=== PATIENT | female | born 1930 | race Caucasian/White ===

== ENCOUNTER 2017-04-09 18:16 | Inpatient (IN) | payer OTHER, MEDICAID ==
[~2017-04-09] VITALS: Ht 160 cm; Wt 54.9 kg
[2017-04-09 18:16] VITALS: BP_SYST 116
[2017-04-09] MEDS ORDERED: NACL 0.9% 250 ML IV ONE (18:28)
[2017-04-09] MEDS ORDERED: NALOXONE HCL 0.4 MG/ML AMP (NARCAN) IVP ONE (18:30)
[2017-04-09 19:17] LABS: HEMATOCRIT 42.3 % (36-48); HEMOGLOBIN 13.6 g/dL (12.0-16.0); MEAN CORPUSCULAR HEMOGLOBIN 28 pg (27-31); MEAN CORPUSCULAR HGB CONC 32 % (32-36); MEAN CORPUSCULAR VOLUME 88 fL (79.0-98.0); PLATELET COUNT (AUTO) 272 K/uL (130-430); RED BLOOD CELL COUNT(AUTO) 4.83 MIL/uL (4.2-6.2); RED CELL DISTRIBUTION WIDTH 14.1 % (9.0-15.0); WHITE BLOOD COUNT (AUTO) 21.6 K/uL (4.8-10.8)
[2017-04-09 19:30] LABS: ANION GAP 22 (5-15); CALCIUM 10.4 mg/dL (8.4-11.0); CHLORIDE 106 mmol/L (98-107); CREATININE 4.77 mg/dL (0.55-1.30); GLUCOSE 201 mg/dL (70-99); INR 1.2 (0.8-1.2); POTASSIUM 4.1 mmol/L (3.5-5.1); PROTHROMBIN TIME 12.7 SECS (9.5-12.5); SODIUM SERUM 141 mmol/L (136-145); UREA NITROGEN, BLOOD 78 mg/dL (8-21)
[2017-04-09 19:34] LABS: ALANINE AMINOTRANSFERASE 41 U/L (12-78); ALBUMIN 2.6 g/dL (3.4-4.8); ASPARTATE AMINOTRANSFERASE 93 U/L (10-37); TOTAL BILIRUBIN 0.7 mg/dL (0.0-1.0)
[2017-04-09 19:35] LABS: ALCOHOL, BLOOD < 3 mg/dL (<10)
[2017-04-09 19:37] LABS: BAND % (MANUAL) 2 % (0-6); BASOPHILS % (MANUAL) 0 % (0-2); EOSINOPHILS % (MANUAL) 0 % (0-7); LYMPHOCYTES % (MANUAL) 3 % (20-46); MONOCYTES % (MANUAL) 7 % (0-11)
[2017-04-09] MEDS ORDERED: NACL 0.9% 1,000 ML IV ONE ×4 (20:00→23:00)
[2017-04-09] MEDS ORDERED: VANCOMYCIN HCL 1,000 MG in NS 250 ML IV ONE (20:00)
[2017-04-09] MEDS ORDERED: VANCOMYCIN HCL 1000 MG/VIAL IV ONE (20:03)
[2017-04-09] MEDS ORDERED: PIPERACILLIN/TAZO 3.375 GM in NS 50 ML IV ONE (20:45)
[2017-04-09] MEDS ORDERED: PIPERACILLIN/TAZOBACTAM 3.375 GM/VIAL (ZOSYN) IV ONE (20:58)
[2017-04-09 21:57] LABS: BARBITURATE, URINE NEGATIVE (NEG <=200); BENZODIAZEPINE, URINE NEGATIVE (NEG <=150); CANNABINOID, URINE NEGATIVE (NEG <=50); COCAINE, URINE NEGATIVE (NEG <=150); METHAMPHETAMINES SCREEN,URINE NEGATIVE (NEG <=500); OPIATE, URINE NEGATIVE (NEG <=100); PHENCYCLIDINE SCREEN,URINE NEGATIVE (NEG <=25); UR TRICYCLIC ANTIDEPRESSANTS NEGATIVE (NEG <=300); URINE AMPHETAMINE NEGATIVE (NEG <=500); URINE METHADONE NEGATIVE (NEG <=200); URINE OXYCODONE SCREEN NEGATIVE (NEG <=100); URINE PROPOXYPHENE SCREEN NEGATIVE (NEG <=300)
[2017-04-09 22:20] LABS: BILIRUBIN,URINE NEGATIVE (NEGATIVE); BLOOD, URINE 3+ (NEGATIVE); CLARITY/URINE SL CLOUDY (CLEAR); COLOR,URINE YELLOW (YELLOW); GLUCOSE,URINE NEGATIVE (NEGATIVE); KETONES,URINE NEGATIVE (NEGATIVE); LEUKOCYTE ESTERASE ,URINE 1+ (NEGATIVE); NITRITE, URINE NEGATIVE (NEGATIVE); PROTEIN URINE 2+ (NEGATIVE); UROBILINOGEN,URINE 0.2 (0.2-1.0)
[2017-04-09 22:31] LABS: BACTERIA,URINE MODERATE /HPF (None Seen); MUCUS,URINE None Seen /LPF (None Seen); RBC,URINE 80-100 /HPF (0-3); URINE AMORPHOUS URATE 1+ /HPF (None Seen)
[2017-04-09] MEDS ORDERED: D5NS 1,000 ML IV SCH (23:00)
[2017-04-09 23:55] VITALS: BP_SYST 135
[2017-04-10] VITALS (23 sets, daily range): BP systolic 51–171
[2017-04-10] MEDS ORDERED: CHOL100062 PO (01:00)
[2017-04-10] MEDS ORDERED: SER25 PO (01:00)
[2017-04-10] MEDS ORDERED: VITD400 PO (01:00)
[2017-04-10] MEDS ORDERED: DONE5TAB26 PO (01:00)
[2017-04-10] MEDS ORDERED: FURO-150 PO (01:00)
[2017-04-10] MEDS ORDERED: LISI-209 PO (01:00)
[2017-04-10] MEDS ORDERED: ASPI-1063 PO (01:00)
[2017-04-10] MEDS ORDERED: LORA-258 PO (01:12)
[2017-04-10] MEDS ORDERED: ONDA4TAB5 PO (01:12)
[2017-04-10] MEDS ORDERED: LOPE2CAP PO (01:12)
[2017-04-10] MEDS ORDERED: CICL544C TP (01:12)
[2017-04-10] MEDS ORDERED: CLOB50FO8 TP (01:12)
[2017-04-10] MEDS ORDERED: BACTROBAN TP (01:12)
[2017-04-10] MEDS ORDERED: ACET-73 PO (01:12)
[2017-04-10] MEDS ORDERED: NOREPINEPHRINE BITARTRATE 4 MG in NS 246 ML IV PRN (01:30)
[2017-04-10] MEDS ORDERED: IPRATROPIUM/ALBUTEROL SULFATE 3 ML AMPUL.NEB INH PRN (01:30)
[2017-04-10] MEDS ORDERED: NOREPINEPHRINE 4 MG/4 ML VIAL IV ONE (01:33)
[2017-04-10] MEDS: LORazepam 2 MG/ML VIAL IVP PRN ×2 (01:54→20:13)
[2017-04-10] MEDS ORDERED: PIPERACILLIN/TAZOBACTAM 3.375 GM/VIAL (ZOSYN) IV ONE (02:01)
[2017-04-10] MEDS ORDERED: PIPERACILLIN/TAZO 3.375/DEX-IS 50 ML IV ONE (05:00)
[2017-04-10] MEDS: HYDROCORTISONE SOD SUCC 100 MG/2 ML VIAL IVP SCH ×3 (05:40→21:35)
[2017-04-10] MEDS ORDERED: PIPERACILLIN/TAZO 3.375/DEX-IS 50 ML IV SCH (06:00)
[2017-04-10 06:46] LABS: ALANINE AMINOTRANSFERASE 40 U/L (12-78); ANION GAP 15 (5-15); ASPARTATE AMINOTRANSFERASE 120 U/L (10-37); CHLORIDE 117 mmol/L (98-107); CREATININE 4.06 mg/dL (0.55-1.30); GLUCOSE 154 mg/dL (70-99); SODIUM SERUM 147 mmol/L (136-145); TOTAL BILIRUBIN 0.6 mg/dL (0.0-1.0); UREA NITROGEN, BLOOD 67 mg/dL (8-21)
[2017-04-10 06:56] LABS: HEMOGLOBIN 12.8 g/dL (12.0-16.0); MEAN CORPUSCULAR HEMOGLOBIN 28 pg (27-31); MEAN CORPUSCULAR HGB CONC 32 % (32-36); MEAN CORPUSCULAR VOLUME 87 fL (79.0-98.0); PLATELET COUNT (AUTO) 292 K/uL (130-430); RED CELL DISTRIBUTION WIDTH 14.6 % (9.0-15.0); WHITE BLOOD COUNT (AUTO) 21.7 K/uL (4.8-10.8)
[2017-04-10] MEDS: IPRATROPIUM/ALBUTEROL SULFATE 3 ML AMPUL.NEB INH SCH ×3 (07:49→19:35)
[2017-04-10] MEDS ORDERED: MORPHINE 2 MG/ML INJ. SYRINGE IVP PRN ×2 (08:30)
[2017-04-10] MEDS ORDERED: DOCUSATE SODIUM 100 MG CAPSULE PO PRN (08:30)
[2017-04-10] MEDS ORDERED: ONDANSETRON HCL 4 MG/2 ML VIAL IVP PRN (08:30)
[2017-04-10] MEDS ORDERED: ACETAMINOPHEN 325 MG TABLET PO PRN (08:30)
[2017-04-10] MEDS ORDERED: POTASSIUM CHLORIDE 10 MEQ TAB.PRT.SR PO PRN (08:30)
[2017-04-10] MEDS ORDERED: LORazepam 2 MG/ML VIAL IVP PRN (08:30)
[2017-04-10] MEDS ORDERED: SODIUM BICARBONATE 8.4% JECT 50 MEQ/50 ML SYRINGE IVP ONE (08:30)
[2017-04-10] MEDS ORDERED: MAGNESIUM SULFATE 50 ML IV PRN (08:30)
[2017-04-10] MEDS: HEPARIN SODIUM,PORCINE 5000 UNITS/ML VIAL SUBCUT SCH ×2 (08:53→21:37)
[2017-04-10 08:57] LABS: ATYPICAL LYMPHOCYTES % 0 % (0-0); BAND % (MANUAL) 3 % (0-6); BASOPHILS % (MANUAL) 0 % (0-2); EOSINOPHILS % (MANUAL) 0 % (0-7); LYMPHOCYTES % (MANUAL) 5 % (20-46); MONOCYTES % (MANUAL) 6 % (0-11)
[2017-04-10] MEDS ORDERED: FLUCONAZOLE 200 mg/ NS 100 ML IV ONE (10:15)
[2017-04-10] MEDS: SODIUM BICARBONATE 8.4% JECT 100 MEQ in D5W 1,000 ML IV SCH (11:51)
[2017-04-10] MEDS: PIPERACILLIN/TAZO 2.25G/DEX-IS 50 ML IV SCH ×2 (12:00→17:14)
[2017-04-11] VITALS (15 sets, daily range): BP systolic 99–136
[2017-04-11] MEDS: PIPERACILLIN/TAZO 2.25G/DEX-IS 50 ML IV SCH ×2 (00:10→05:37)
[2017-04-11] MEDS: SODIUM BICARBONATE 8.4% JECT 100 MEQ in D5W 1,000 ML IV SCH (00:41)
[2017-04-11] MEDS: IPRATROPIUM/ALBUTEROL SULFATE 3 ML AMPUL.NEB INH SCH ×4 (01:04→19:00)
[2017-04-11] MEDS: HYDROCORTISONE SOD SUCC 100 MG/2 ML VIAL IVP SCH (05:36)
[2017-04-11 06:21] LABS: HEMATOCRIT 33.7 % (36-48); HEMOGLOBIN 11.1 g/dL (12.0-16.0); MEAN CORPUSCULAR HEMOGLOBIN 28 pg (27-31); MEAN CORPUSCULAR HGB CONC 33 % (32-36); MEAN CORPUSCULAR VOLUME 86 fL (79.0-98.0); PLATELET COUNT (AUTO) 229 K/uL (130-430); RED BLOOD CELL COUNT(AUTO) 3.94 MIL/uL (4.2-6.2); RED CELL DISTRIBUTION WIDTH 13.8 % (9.0-15.0)
[2017-04-11 06:23] LABS: ANION GAP 11 (5-15); CALCIUM 8.4 mg/dL (8.4-11.0); CHLORIDE 115 mmol/L (98-107); CREATININE 3.49 mg/dL (0.55-1.30); GLUCOSE 184 mg/dL (70-99); POTASSIUM 3.2 mmol/L (3.5-5.1); SODIUM SERUM 152 mmol/L (136-145); UREA NITROGEN, BLOOD 65 mg/dL (8-21)
[2017-04-11 07:40] LABS: ATYPICAL LYMPHOCYTES % 0 % (0-0); BAND % (MANUAL) 2 % (0-6); EOSINOPHILS % (MANUAL) 0 % (0-7); LYMPHOCYTES % (MANUAL) 6 % (20-46); MONOCYTES % (MANUAL) 5 % (0-11)
[2017-04-11 07:41] LABS: BASOPHILS % (MANUAL) 0 % (0-2)
[2017-04-11] MEDS ORDERED: MORPHINE I.V. DRIP 100 ML IV PRN (09:30)
[2017-04-11] MEDS ORDERED: MORPHINE PCA 50 mg/50 mL NS 50 ML IV PRN (10:45)
[2017-04-11] MEDS: MORPHINE PCA 50 mg/50 mL NS 50 ML IV PRN (11:13)
[2017-04-12] MEDS: IPRATROPIUM/ALBUTEROL SULFATE 3 ML AMPUL.NEB INH SCH ×2 (01:00→07:00)
[2017-04-12 03:55] VITALS: BP_SYST 90
[2017-04-12] MEDS: MORPHINE PCA 50 mg/50 mL NS 50 ML IV PRN (05:50)
[2017-04-12 10:50] VITALS: BP_SYST 80
[2017-04-12 11:24] VITALS: BP_SYST 77
[2017-04-12] MEDS ORDERED: VANCOMYCIN HCL 750 MG in NS 250 ML IV SCH (20:00)
== END 2017-04-12 11:30 | disposition hospice, inpatient (51) | DRG 871 ==
LOC: SED 18:16 → SIC 22:50 → SMU 04-11 13:30
PROVIDERS: ADMIT General Practice; ATTEND General Practice
PROC: 5A09457 Assistance with Respiratory Ventilation, 24-96 Consecutive Hours, Continuous Positive Airway Pressure (ICD-10-PCS; principal; 2017-04-10)
PROC: 02HV33Z Insertion of Infusion Device into Superior Vena Cava, Percutaneous Approach (ICD-10-PCS; 2017-04-10)
DX: A41.9 Sepsis, unspecified organism (principal); J96.01 Acute respiratory failure with hypoxia; N17.0 Acute kidney failure with tubular necrosis; J69.0 Pneumonitis due to inhalation of food and vomit; R65.21 Severe sepsis with septic shock; G93.41 Metabolic encephalopathy; E44.0 Moderate protein-calorie malnutrition; N39.0 Urinary tract infection, site not specified; W18.30XA Fall on same level, unspecified, initial encounter; E86.0 Dehydration; F29 Unspecified psychosis not due to a substance or known physiological condition; F02.80 Dementia in other diseases classified elsewhere, unspecified severity, without behavioral disturbance, psychotic disturbance, mood disturbance, and anxiety; G30.9 Alzheimer's disease, unspecified; F39 Unspecified mood [affective] disorder; I10 Essential (primary) hypertension; Z51.5 Encounter for palliative care; Z82.49 Family history of ischemic heart disease and other diseases of the circulatory system; Z87.891 Personal history of nicotine dependence; Z68.21 Body mass index [BMI] 21.0-21.9, adult; Z90.49 Acquired absence of other specified parts of digestive tract
CPT/HCPCS: 36415; 36600; 71010; 80048; 80053; 80307; 81000-TC; 82803-TC; 83605; 83735-TC; 83880; 84484; 85007; 85027; 85610-TC; 85730-TC; 87040-TC; 87081; 87086; 87186-TC; 93005; 94640; 94660; 96361; 96365; 96366; 96368; 99285; 99292; A6209; C1751; G0482; J1450; J1644; J1720; J2060; J2270; J2310; J2543; J3370; J7030; J7040; J7042; J7050; J7060